=== PATIENT | female | born 1950 | race Two or more races ===

== ENCOUNTER 2018-10-01 10:15 | Inpatient (IN) | payer OTHER ==
[~2018-10-01] VITALS: Ht 142.2 cm; Wt 74.8 kg
[~2018-10-01 10:15] MED LIST: CATAFLAN PO; CLONAZEPAM1 MG PO; ENALAPRIL MALEA20 MG PO; LIPITOR40 MG PO; METFORMIN HCL500 MG PO
[2018-10-01] MEDS ORDERED: LOSARTAN-HCTZ1 EAC1 PO (16:24)
[2018-10-01] MEDS ORDERED: AMLODIPINE BESYL5 MG PO (16:26)
== END 2018-10-05 21:59 | DRG 470 ==
LOC: ADM 10:15 → SURH 10-03 07:00 → O/R 10-03 07:52 → EDSTATUS 10-03 10:15 → CIR.AMB 10-03 10:15 → SURH 10-03 10:15
PROVIDERS: ADMIT Orthopaedic Surgery
PROC: 0SRD0J9 Replacement of Left Knee Joint with Synthetic Substitute, Cemented, Open Approach (ICD-10-PCS; principal; 2018-10-03 07:00)
DX: M17.12 Unilateral primary osteoarthritis, left knee (principal); I10 Essential (primary) hypertension; E11.9 Type 2 diabetes mellitus without complications; E78.49 Other hyperlipidemia; E03.8 Other specified hypothyroidism